=== PATIENT | female | born 1950 | race Caucasian/White ===

== ENCOUNTER 2017-08-15 06:39 | Day surgery (SDC) | payer MEDICARE ==
[2017-08-08 11:57] VITALS: BMI 32.1
[~2017-08-15 06:39] MED LIST: DEXAMETHASONE SOD PHOSPHATE 10 MG/ML 1 ML VIAL IV ONE; HEPARIN SODIUM,PORCINE 5,000 UNIT/ML 1 ML VIAL SQ ONE; LACTATED RINGERS 1,000 ML IV SCH; MIDAZOLAM 2 MG/2 ML VIAL IV PRN; MORPHINE SULFATE 4 MG/ML SYRINGE IV PRN; ONDANSETRON 4 MG/2 ML VIAL IVP ONE; Pre Op ABX Message 1 EACH MISC MISCELLANE ONE
[2017-08-15 07:17] VITALS: TEMP 97.6
[2017-08-15] MEDS ORDERED: ALPRAZolam 0.25 MG TAB PO STA (07:17)
[2017-08-15] MEDS ORDERED: LIDOCAINE 1% 20 ML VIAL (10MG/ML) FOR IV START INTRADERMA ONE (07:18)
--- NOTE | 2017-08-15 08:25 | NM ---
EXAMINATION TYPE: NM sentinel node injection DATE OF EXAM: 08/15/2017 COMPARISON: NONE HISTORY: Left-sided breast cancer TECHNIQUE AND FINDINGS: The procedure of sentinel lymph node injection was explained to the patient. The benefits, alternatives, and risks were discussed. An informed consent was then obtained. Overlying skin is cleaned with sterile alcohol. Lidocaine buffered with bicarbonate was used as anes thetic into the skin and subcutaneous tissue surrounding the nipple. Following this, 541 uCi Tc 99m Filtered Sulfur Colloid was injected into 4 equivalent doses at 12, 3, 6, and 9:00 position surroundi ng the left nipple intradermally. The injection sites were massaged by nuclear reactor engineer for 10 minutes after injection. T he patient tolerated the procedure well without any immediate complication. The patient was kept in the radiology department for short stay after the procedure and then taken to surgery for surgical pr ocedure what is presumed intraoperative gamma probe will be used for sentinel lymph node detection. IMPRESSION: Left breast radiotracer injection for sentinel node localization as above.
[2017-08-15] MEDS ORDERED: HEPARIN SODIUM,PORCINE 5,000 UNIT/ML 1 ML VIAL SQ ONE (09:58)
--- NOTE | 2017-08-15 10:01 | P.PN ---
Progress Note - Text Patient's pathology slides were reviewed with pathologist at [facility]. Patient does not wish to have them re-reviewed at [facility]. Therefore, we will proceed with surgical resection based on review of the pathology slides at [facility].
[2017-08-15] MEDS ORDERED: diphenhydrAMINE 50 MG/ML 1 ML VIAL ONE (10:27)
[2017-08-15] MEDS ORDERED: PHENYLEPHRINE-0.9% NACL SYG 1 MG/10 ML SYRINGE ONE (10:27)
[2017-08-15] MEDS ORDERED: fentaNYL (PF) 50 MCG/ML 2 ML AMP ONE (10:27)
[2017-08-15] MEDS ORDERED: PROPOFOL 10 MG/ML 20 ML VIAL IV ONE (10:27)
[2017-08-15] MEDS ORDERED: LIDOCAINE 1% INJ 10MG/ML (20 ML MDV) ONE (10:27)
[2017-08-15] MEDS ORDERED: MIDAZOLAM 2 MG/2 ML VIAL ONE (10:27)
[2017-08-15] MEDS ORDERED: KETOROLAC 30 MG/ML 1 ML VIAL ONE (10:27)
[2017-08-15] MEDS ORDERED: MORPHINE SULFATE 10 MG/ML SYRINGE ONE (10:27)
[2017-08-15] MEDS ORDERED: SUCCINYLCHOLINE CHLORIDE 100 MG/5 ML SYR IV ONE (10:27)
[2017-08-15] MEDS ORDERED: SODIUM CHLORIDE 0.9% 50 ML with ceFAZolin 2,000 MG IV ONE ×2 (10:37)
[2017-08-15] MEDS ORDERED: METHYLENE BLUE 10 MG/ML (10 ML VIAL) INJ ONE (10:37)
[2017-08-15] MEDS ORDERED: LACTATED RINGERS 1,000 ML IV ONE ×2 (11:38)
--- NOTE | 2017-08-15 12:46 | P.OP ---
Date of Procedure: 08/15/17 Preoperative Diagnosis: Left breast cancer Postoperative Diagnosis: Left breast cancer Procedure(s) Performed: Methylene blue injection for lymphatic mapping, sentinel node biopsy, lumpectomy with titanium clip placement Anesthesia: LUIS MIGUEL Surgeon: Carey Dowling Estimated Blood Loss (ml): 20 IV fluids (ml): 1,100 Pathology: other (Left sentinel nodes, lumpectomy specimen) Condition: stable Disposition: PACU Indications for Procedure: Left breast cancer Operative Findings: Left breast cancer Description of Procedure: Patient was taken to the operating room and following induction of general anesthesia the periareolar area was prepped using alcohol on the left breast. 5 mL of half percent methylene blue was injected in the periareolar area and the breast was massaged. The left breast and axilla were then prepped and draped in a sterile fashion. Using the neoprobe the area of greatest radioactivity was identified in the left axilla. An incision was made at this site. The incision was then expanded in order to get better access to the axilla. The skin and subcutaneous tissues were entered and dissection was performed down to the pectoralis minor muscle which was then carried up superiorly towards the axillary vein. At this point several sentinel nodes were identified. These are very small and removed and the following order. [place] lymph node #1 10 second count 691; number 2, 10 second count 207 sentinel lymph node #3, 10 second count 141 seconds node number 4, 10 second count 401 and sentinel nodes 5 and 6 were together and sentinel node count of this was 12,325. The background count in the axilla was 10 second count of 14. No blue dye was noted in the axilla or in any of the sentinel nodes. No other suspicious adenopathy was identified. To facilitate dissection fatty tissue over the area of the sentinel nodes was removed as well. After we were assured that hemostasis was attained the wound was packed. The area of the breast was then approached. The tumor was in the retroareolar area. Circumferential incision around the areola was performed. This was dissected down to the area of the chest wall being careful to remove the tumor. The anterior border of dissection was the nipple and periareolar tissue, and the posterior border was the pectoralis major muscle. After we were assured that hemostasis was attained the wound was well irrigated. The deep tissues were closed using 3-0 Vicryl suture. Titanium clips were placed for orientation of the cavity. The subcutaneous tissues were closed with 3-0 Vicryl suture. The skin was closed with 4-0 Monocryl. The pathology returned from the sentinel node biopsies and all sentinel nodes were negative for cancer. A MARTIN drain was placed. The wound was well irrigated no evidence of bleeding was identified. The deep tissues were closed with 3-0 Vicryl followed by closure of the skin with 4-0 Monocryl. All instrument and sponge counts were correct at the end of the case. The specimen was painted for orientation at the end of the case.
--- NOTE | 2017-08-15 12:48 | P.DS ---
Providers Attending physician: Carey Dowling Primary care physician: Demarco Ridley Plan - Discharge Summary New Discharge Prescriptions: No Action No Known Home Medications [No Known Home Medications] Discharge Medication List No Known Home Medications [No Known Home Medications] 08/05/15 [History] Follow up Appointment(s)/Referral(s): Carey Dowling MD [STAFF PHYSICIAN] - 3 Days Activity/Diet/Wound Care/Special Instructions: Do not drive until seen by Dr. Lott Do not drive if taking narcotic pain medication Teach patient drain care, drain and record BID Discharge Disposition: HOME SELF-CARE
[2017-08-15 14:27] VITALS: RESP 18
[2017-08-15] MEDS ORDERED: HYDROcodone/APAP 5-325MG 1 EACH TAB PO ONE (15:18)
[2017-08-15 15:41] VITALS: BP 117/71; PULSE 87
== END 2017-08-15 15:55 | disposition home or self-care (01) ==
LOC: OR 06:39
PROVIDERS: ATTEND Surgery
DX: C50.912 Malignant neoplasm of unspecified site of left female breast (principal); D05.12 Intraductal carcinoma in situ of left breast; N60.32 Fibrosclerosis of left breast; N60.02 Solitary cyst of left breast; N60.82 Other benign mammary dysplasias of left breast; N60.42 Mammary duct ectasia of left breast; N60.22 Fibroadenosis of left breast; Z88.5 Allergy status to narcotic agent; M54.30 Sciatica, unspecified side; N60.92 Unspecified benign mammary dysplasia of left breast
CPT/HCPCS: 88342; 88331; 88307; 88341; 38792; 19301; 38525; A9541; J2250; J1200; J1644; J1100; J2270; J2405; J2001; Q9968; J3010; J1885; J0690; J2370; J0330; J2704

== ENCOUNTER → 2017-12-07 | Outpatient (CLI) | payer MEDICARE ==
[2017-12-07 11:48] VITALS: BP 146/84; PULSE 94; TEMP 98.8; BMI 32.8
--- NOTE | 2017-12-07 12:02 | P.PN ---
Subjective Progress Note Date: 12/07/17 Patient is a 67-year-old white female status post left lumpectomy and radiation therapy in July 2017. At this time the patient is doing well without complaints. She has finished her course of radiation therapy and is recently started on anti-estrogen anastrozole. The patient has no complaints Objective - Vital Signs Vital signs: Vital Signs Temp 98.8 F 12/07/17 11:45 Pulse 94 12/07/17 11:45 Resp BP 146/84 12/07/17 11:45 Pulse Ox 97 12/07/17 11:45 Intake & Output 12/06/17 12/07/17 12/07/17 18:59 06:59 18:59 Weight 95.254 kg - Constitutional General appearance: Present: obese - EENT Eyes: Present: EOMI - Neck Neck: Present: normal ROM - Respiratory Respiratory: bilateral: CTA - Cardiovascular Rhythm: regular Heart sounds: normal: S1, S2 - Gastrointestinal General gastrointestinal: Present: normal bowel sounds, soft - Musculoskeletal Musculoskeletal: Present: gait normal - Psychiatric Psychiatric: Present: A&O x's 3, appropriate affect - Additional findings Additional findings: Breast examination: Right breast: No dominant masses or nodules of concern were multiple positional exam Left breast: Postoperative changes no dominant masses or nodules of concern, the patient oncology changes Bilateral axilla: No adenopathy of concern Assessment and Plan Assessment: Impression/plan: 1. Patient status post left breast lumpectomy doing well with no evidence of recurrent disease 2. She is followed with a lymphedema specialist no evidence of lymphedema or symptomatic at this time 3. Patient on an antiestrogen medication Plan: Repeat left breast mammogram at 6 months which will be approximately February and follow-up examination at that time
== END ==
LOC: WWCWWP 11:25
PROVIDERS: ATTEND Surgery
DX: R92.8 Other abnormal and inconclusive findings on diagnostic imaging of breast (principal); Z53.9 Procedure and treatment not carried out, unspecified reason

== ENCOUNTER → 2018-04-19 | Outpatient (CLI) | payer MEDICARE ==
[2018-04-19 12:59] VITALS: BP 142/84; PULSE 77; RESP 16; TEMP 98; BMI 30.5
--- NOTE | 2018-04-19 13:21 | P.PN ---
Subjective Progress Note Date: 04/19/18 The patient is a 60-year-old white female who is status post a left breast lumpectomy in July 2017. The patient had a 1.7 cm ER/[place] positive HER-2/precious negative breast cancer removed via lumpectomy. She had an Oncotype study performed on the lesion which was low risk at 15 and therefore did not have chemotherapy. She did undergo radiation therapy. And she is on anastrozole and Fosamax. Tumor was grade 2. She had nine lymph nodes removed, all negative.T1N0Mo, a low Oncotype score at 15. She had a lumpectomy and radiation therapy and is on hormonal therapy. She has no lumps or masses in her breast. No new changes for which she is concerned. A recent mammogram was performed yesterday and she was told that this was negative for any thing of concern. Mammogram was bilateral. We will obtain those reports. Objective - Vital Signs Vital signs: Vital Signs Temp 98.0 F 04/19/18 12:52 Pulse 77 04/19/18 12:52 Resp 16 04/19/18 12:52 BP 142/84 04/19/18 12:52 Pulse Ox 97 04/19/18 12:52 Intake & Output 04/18/18 04/19/18 04/19/18 18:59 06:59 18:59 Weight 88.451 kg BMI 30.5 - Constitutional General appearance: Present: obese - EENT Eyes: Present: EOMI ENT: Present: hearing grossly normal - Neck Neck: Present: normal ROM - Respiratory Respiratory: bilateral: CTA - Cardiovascular Rhythm: regular Heart sounds: normal: S1, S2 - Gastrointestinal Gastrointestinal Comment(s): well healed scars General gastrointestinal: Present: soft - Integumentary Integumentary: Present: normal - Psychiatric Psychiatric: Present: A&O x's 3, appropriate affect, intact judgment & insight Assessment and Plan Assessment: Impression: 1. status post left breast lumpectomy and radiation therapy [id number], Grade 2 Plan: 1. follow up in 6 months cc: Khai
== END ==
LOC: WWCWWP 12:12
PROVIDERS: ATTEND Surgery
DX: Z53.9 Procedure and treatment not carried out, unspecified reason (principal)

== ENCOUNTER → 2018-11-22 | Outpatient (CLI) | payer MEDICARE ==
[2018-11-22 13:35] VITALS: BP 133/85; PULSE 94; RESP 16; TEMP 98.6; BMI 30.2
--- NOTE | 2018-11-22 14:19 | P.GSHP ---
History of Present Illness H&P Date: 11/22/18 Chief Complaint: Left breast lumpectomy July 2017 Yee is a 68-year-old white female who is status post left breast lumpectomy in July 2017. The patient had a T1C 1.7 cm ER, [place] Positive HER-2/precious negative/borderline equivocal Grade 3 breast cancer removed via lumpectomy, Grade 2. She had an oncotype study performed which was low risk of 15 and did not have chemotherapy. She did undergo radiation therapy. She was then treated with anastrozole and Fosamax. She had some initial ? bony pain and stopped the anastrazole for a short time, she is back on it at this time. She is not having any complaints related to her breast. The patient's last bilateral mammogram was . This was considered to be incomplete and a left breast ultrasound was ordered. Nothing of concern was noted in the right breast. Family history: Brother: Bladder cancer Hormonal history: Menarche: 13 :2, 2 children, age at first 19, breast fed: yes Menopause: 48 control pills: 5 year Hormones: none Past Surgical History: 1. gallbladder 2. appy 3. lumpectomy Past Medical History: 1. negative Smoke: smoke: none alcohol: none drugs: none Review of systems: HEENT: Wears glasses Constitutional: Difficulty with sleeping, related to Anestrazole Lungs: none heart: none GI: constipation : none Musculoskeletal: Sore joints but seemed to be improving Integument:none Psychiatric: none - Constitutional Constitutional: Reports sweats, Denies chills, Denies fever - EENT Eyes: denies blurred vision, denies pain Ears: deny: decreased hearing, tinnitus Ears, nose, mouth and throat: Denies headache, Denies sore throat - Breasts Breasts: bilateral: as per HPI - Cardiovascular Cardiovascular: Denies chest pain, Denies shortness of breath - Respiratory Respiratory: Reports cough - Gastrointestinal Comment: constipation - Genitourinary (Female) Genitourinary: Denies dysuria, Denies hematuria - Menstruation Menstruation: Reports postmenopausal - Musculoskeletal Comment: joint pain resolved - Integumentary Integumentary: Denies pruritus, Denies rash - Neurological Neurological: Denies numbness, Denies weakness - Psychiatric Psychiatric: Denies anxiety, Denies depression - Endocrine Endocrine: Reports fatigue, Denies weight change - Hematologic/Lymphatic Comment: none - Allergic/Immunologic Allergic/Immunologic: Reports as per HPI Past Medical History Past Medical History: Cancer Additional Past Medical History / Comment(s): L Breast CA History of Any Multi-Drug Resistant Organisms: None Reported Past Surgical History: Appendectomy, Breast Surgery, Cholecystectomy Additional Past Surgical History / Comment(s): U/S CORE BX 08/01/17. lumpectomy and snb 08/15/17 Past Anesthesia/Blood Transfusion Reactions: No Reported Reaction Past Psychological History: No Psychological Hx Reported Smoking Status: Never smoker Past Alcohol Use History: None Reported Past Drug Use History: None Reported - Past Family History Mother Family Medical History: No Reported History Brother(s) Family Medical History: Cancer Additional Family Medical History / Comment(s): HEART DISEASE; BLADDER CANCER Father Family Medical History: Renal Disease Additional Family Medical History / Comment(s): HEART DISEASE Medications and Allergies Home Medications Medication Instructions Recorded Confirmed Type Alendronate Sodium 70 mg PO WEEKLY 12/07/17 11/22/18 History Anastrozole [Arimidex] 1 mg PO QAM 12/07/17 11/22/18 History Allergies Allergy/AdvReac Type Severity Reaction Status Date / Time codeine AdvReac dizziness,l Verified 11/22/18 13:36 ightheaded Surgical - Exam Vital Signs Temp Pulse Resp BP Pulse Ox 98.6 F 94 16 133/85 95 11/22/18 13:28 11/22/18 13:28 11/22/18 13:28 11/22/18 13:28 11/22/18 13:28 BMI 30.2 - General well developed, well nourished, no distress - Eyes normal ocular movement - ENT no hearing loss - Neck no masses, trachea midline - Respiratory normal respiratory effort, clear to auscultation - Cardiovascular Rhythm: regular Heart Sounds: normal: S1, S2 - Abdomen Abdomen: soft, non tender, no guarding, no rigid, no rebound - Integumentary normal turgor - Neurologic no disoriented, no combative - Musculoskeletal normal gait, normal posture - Psychiatric oriented to time, oriented to person, oriented to place, speech is normal, memory intact breast exam: right breast: Multi-positional exam no dominant masses or nodules of concern, fibrocystic changes Right axilla: No adenopathy of concern Left breast: Multi-positional exam no dominant masses or nodules of concern, patient has had a lumpectomy which is a central lumpectomy Left axilla: No adenopathy of concern Results mammogram results from may 2018 reviewed Assessment and Plan Assessment: Impression: 1. Stage IA left breast cancer 2. Fibrocystic breast changes 3. joint pain improving on anestrazole 4. no evidence of recurrent disease Plan: 1. Repeat examination here in 3 months time 2. Continue to follow with Dr. Dr. Farnsworth radiation oncology 3. Follow-up with Dr. Farnsworth medical oncology CC: DR. Georgie Ridley
== END ==
LOC: WWCWWP 13:10
PROVIDERS: ATTEND Surgery
DX: Z53.9 Procedure and treatment not carried out, unspecified reason (principal)

== ENCOUNTER → 2019-08-07 | Outpatient (CLI) | payer MEDICARE, OTHER ==
[2019-08-07 13:02] VITALS: BP 162/82; PULSE 86; RESP 18; TEMP 98.5
--- NOTE | 2019-08-07 13:40 | P.PN ---
Subjective Progress Note Date: 08/07/19 Principal diagnosis: Surveillance stage I left breast cancer treated in July 2017 Yee is a 68-year-old white female who is status post left breast lumpectomy in July 2017. The patient had a T1C 1.7 cm ER, [place] Positive HER-2/percious negative/borderline equivocal Grade 2 breast cancer removed via lumpectomy. She had an oncotype study performed which was low risk of 15 and did not have chemotherapy. She did undergo radiation therapy. She was then treated with anastrozole and Fosamax. She had some initial ? bony pain and stopped the anastrazole for a short time, she is back on it at this time. She is not having any complaints related to her breast. The patient's last bilateral mammogram was 06-26-19. This was bilateral. It was benign BIRADS 2. Follow-up bilateral mammogram in 1 year recommended. Patient does not have any complaints of any changes in her breast. She does not complain of any skin changes. No nipple discharge. No lumps or masses in her breast of concern. She is not complaining of any breast pain. Family history: Brother: Bladder cancer patient: breast cancer Hormonal history: Menarche: 13 :2, 2 children, age at first 19, breast fed: yes Menopause: 48 control pills: 5 year Hormones: none Past Surgical History: 1. gallbladder 2. appy 3. lumpectomy 4. left breast lumpectomy and SNB Past Medical History: 1. ankle pain, right side/ MRI showed swelling which has improved Smoke: smoke: none alcohol: none drugs: none Review of systems: HEENT: Wears glasses Constitutional: Difficulty with sleeping, related to Anestrazole Lungs: none heart: none GI: constipation : none Musculoskeletal: Sore joints but seemed to be improving/ right ankle pain improved Integument:none Psychiatric: none - Constitutional Constitutional: Reports sweats, Denies chills, Denies fever - EENT Eyes: denies blurred vision, denies pain, wears glasses Ears: deny: decreased hearing, tinnitus Ears, nose, mouth and throat: Denies headache, Denies sore throat, mild headaches on anestrazole - Breasts Breasts: bilateral: as per HPI - Cardiovascular Cardiovascular: Denies chest pain, Denies shortness of breath, HTN, high cholesterol - Respiratory Respiratory: Reports cough in AM not persistent - Gastrointestinal Comment: a colonscopy done in November 2017, no problems - Genitourinary (Female) Genitourinary: Denies dysuria, Denies hematuria - Menstruation Menstruation: Reports postmenopausal - Musculoskeletal Comment: joint pain resolved - Integumentary Integumentary: Denies pruritus, Denies rash - Neurological Neurological: Denies numbness, Denies weakness, tingling in toes - Psychiatric Psychiatric: Denies anxiety, Denies depression - Endocrine Endocrine: Reports fatigue, Denies weight change - Hematologic/Lymphatic Comment: none - Allergic/Immunologic Allergic/Immunologic: Reports as per HPI Past Medical History Past Medical History: Cancer Additional Past Medical History / Comment(s): L Breast CA History of Any Multi-Drug Resistant Organisms: None Reported Past Surgical History: Appendectomy, Breast Surgery, Cholecystectomy Additional Past Surgical History / Comment(s): U/S CORE BX 08/01/17. lumpectomy and snb 08/15/17 Past Anesthesia/Blood Transfusion Reactions: No Reported Reaction Past Psychological History: No Psychological Hx Reported Smoking Status: Never smoker Past Alcohol Use History: None Reported Past Drug Use History: None Reported - Past Family History Mother Family Medical History: No Reported History Brother(s) Family Medical History: Cancer Additional Family Medical History / Comment(s): HEART DISEASE; BLADDER CANCER Father Family Medical History: Renal Disease Additional Family Medical History / Comm Objective - Vital Signs Vital signs: Vital Signs Temp 98.5 F 08/07/19 12:57 Pulse 86 08/07/19 12:57 Resp 18 08/07/19 12:57 BP 162/82 08/07/19 12:57 Pulse Ox 97 08/07/19 12:57 Intake & Output 08/06/19 08/07/19 08/07/19 18:59 06:59 18:59 Weight 89.358 kg - Exam BMI 30.9 - Constitutional General appearance: Present: average body habitus - EENT Eyes: Present: EOMI ENT: Present: hard of hearing, hearing grossly normal - Neck Details: no adenopathy of concern Neck: Present: normal ROM - Respiratory Respiratory: bilateral: CTA - Cardiovascular Rhythm: regular Heart sounds: normal: S1, S2 - Gastrointestinal General gastrointestinal: Present: normal bowel sounds, soft - Integumentary Integumentary: Present: normal turgor - Musculoskeletal Musculoskeletal: Present: gait normal - Psychiatric Psychiatric: Present: A&O x's 3, appropriate affect, intact judgment & insight - Additional findings Additional findings: breast exam: BRA 40DD Inspection: No evidence of recurrence on the skin, right nipple is not inverted, left nipple areolar complex removed at time of lumpectomy Palpation: Right breast: Multi-positional exam fibrocystic changes, no dominant masses or nodules of concern Right axilla: No adenopathy of concern Left breast: Patient status post lumpectomy, nipple areolar complex removed, multiple positional exam no dominant masses or nodules of concern, no evidence of recurrence Left axilla: No adenopathy of concern Assessment and Plan Assessment: Impression: 1. Patient status post left lumpectomy and sentinel node biopsy July 2017 for stage I breast cancer/patient received radiation therapy therapy her Oncotype score was low she is presently on anastrozole 2. Questionable side effects from anastrozole including decreased ability to sleep, night sweats, and joint pain 3. Hypertension 4. High cholesterol Plan: 1. Patient is interested in trying to determine the possible benefit of the anastrozole and will discuss this with Dr. Farnsworth, she may opt to stop the anastrozole if a benefit as well 2. Recent normal mammogram repeat bilateral mammogram in 1 year with physician exam at that time 3. Six-month follow-up breast examination CC: Dr. Ridley encounter 20 minutes, > 50% spent in planning and counselling Time with Patient: Less than 30
== END ==
LOC: WWCWWP 10:26
PROVIDERS: ATTEND Surgery
DX: Z53.9 Procedure and treatment not carried out, unspecified reason (principal)

== ENCOUNTER → 2020-07-03 | Outpatient (CLI) | payer MEDICARE ==
--- NOTE | 2020-07-03 11:11 | P.PN ---
Subjective Progress Note Date: 07/03/20 Principal diagnosis: stage 1 left breast cancer stage 1 left breast cancer Surveillance stage I left breast cancer treated in July 2017 Yee is a 68-year-old white female who is status post left breast lumpectomy in July 2017. The patient had a T1C 1.7 cm ER, [place] Positive HER-2/precious negative/borderline equivocal Grade 2 breast cancer removed via lumpectomy. She had an oncotype study performed which was low risk of 15 and did not have chemotherapy. She did undergo radiation therapy. She was then treated with anastrozole and Fosamax. She had some initial ? bony pain and stopped the anastrazole for a short time this was restarted in December. She was doing better as far as joint pain this time. After she'll be started to anastrozole the bony symptoms recurred as well as difficulty with sleeping. Therefore approximately 6 months ago she stopped it again and is not planning to go back on it. She is not having any complaints related to her breast. The patient's last bilateral mammogram was 07-02-20. This was bilateral. It was benign BIRADS 2. Follow- up bilateral mammogram in 1 year recommended. Patient does not have any complaints of any changes in her breast. She does not complain of any skin changes. No nipple discharge. No lumps or masses in her breast of concern. She is not complaining of any breast pain. Family history: Brother: Bladder cancer patient: breast cancer Hormonal history: Menarche: 13 :2, 2 children, age at first 19, breast fed: yes Menopause: 48 control pills: 5 year Hormones: none Past Surgical History: 1. gallbladder 2. appy 3. lumpectomy 4. left breast lumpectomy and SNB Past Medical History: 1. ankle pain, right side/ MRI showed swelling which has improved 2. [place] upper extremities Social History: smoke: none alcohol: none drugs: none Review of systems: HEENT: Wears glasses Constitutional: Difficulty with sleeping, related to Anestrazole Lungs: none heart: none GI: constipation : none Musculoskeletal: Sore joints but seemed to be improving/ right ankle pain improved Integument:none Psychiatric: none Objective - Vital Signs Vital signs: Vital Signs Temp 97.5 F L 07/03/20 10:46 Pulse 93 07/03/20 10:46 Resp 18 07/03/20 10:46 BP 138/88 07/03/20 10:46 Pulse Ox 97 07/03/20 10:46 Intake & Output 07/02/20 07/03/20 07/03/20 18:59 06:59 18:59 Weight 90.718 kg - Exam BM 31.3 - Constitutional General appearance: Present: average body habitus - EENT Eyes: Present: EOMI ENT: Present: hearing grossly normal - Neck Neck: Present: normal ROM - Respiratory Respiratory: bilateral: CTA - Cardiovascular Rhythm: regular Heart sounds: normal: S1, S2 - Gastrointestinal General gastrointestinal: Present: normal bowel sounds, soft - Integumentary Integumentary: Present: normal turgor - Musculoskeletal Musculoskeletal: Present: gait normal - Psychiatric Psychiatric: Present: A&O x's 3, appropriate affect - Additional findings Additional findings: breast exam: BRA: 40DD inspection: left breast partial mastectomy palpation: right breast: Multi positional exam no dominant masses or nodules of concern Right axilla: No adenopathy of concern Left breast: Partial mastectomy, no dominant masses or nodules of concern on multi-positional exam Left axilla: No adenopathy of concern Assessment and Plan Assessment: Impression: 1. stage 1 left breast cancer no evidence of recurrence 2. Fibrocystic breast changes 3. Patient has stopped anastrozole and is feeling better as far as discomfort, sleeping better at night 4. [place] resolved Plan: 1. Repeat bilateral mammogram in 1 year 2. Follow-up appointment in 6 months for surveillance 3. Call sooner if any questions or concerns Cc: Dr. Georgie Ridley encounter 15 minutes, > %0% of time in planning and counselling
== END | disposition home or self-care (01) ==
DX: Z53.9 Procedure and treatment not carried out, unspecified reason (principal)

== ENCOUNTER → 2020-07-07 | Outpatient (CLI) | payer MEDICARE ==
--- NOTE | 2020-07-07 11:18 | CT ---
EXAMINATION TYPE: CT abdomen pelvis wo con DATE OF EXAM: 07/07/2020 COMPARISON: None HISTORY: RUQ pain with constipation CT DLP: 650.2 mGycm Examination of the solid and hollow viscera is limited given the lack of contrast. FINDINGS: LUNG BASES: No evidence for nodule. No evidence for infiltrate. LIVER/GB: The gallbladder is unremarkable. No space-occupying hepatic lesion. PANCREAS: No pancreatic mass identified. No inflammatory process seen. SPLEEN: No evidence for splenomegaly. No intrasplenic lesions seen. ADRENALS: No adrenal nodules identified. No evidence for thickening. KIDNEYS: There are multiple hypoattenuating lesions in the region of the renal pelvis felt to reflect parapelvic cysts left kidney. There may be a degree of the mild hydronephrosis however evaluation is limited given the lack of contrast. No evidence for right-sided hydronephrosis. A few small parapelv ic cysts are noted lower pole right kidney. BOWEL: Appendix has a normal appearance. No evidence of bowel obstruction. No inflammatory process. Diverticulosis without diverticulitis. Lymph nodes: No evidence for adenopathy greater than 1 cm. Abdominal aorta: Atheromatous changes seen. No evidence for aneurysm. Genital organs: No significant abnormality. Other: No significant abnormality. IMPRESSION: 1.There are multiple hypoattenuating lesions in the region of the renal pelvis felt to reflect parape lvic cysts left kidney. There may be a degree of the mild hydronephrosis however evaluation is limite d given the lack of contrast.
== END | disposition home or self-care (01) ==
LOC: RADCTMAIN 10:31
PROVIDERS: ATTEND Family Medicine
DX: N28.9 Disorder of kidney and ureter, unspecified (principal)
CPT/HCPCS: 74176

== ENCOUNTER → 2021-12-09 | Outpatient (CLI) | payer MEDICARE ==
[2021-12-09 09:52] VITALS: BP 129/85; PULSE 79; RESP 16; TEMP 98.7
--- NOTE | 2021-12-09 10:31 | P.PN ---
Subjective Progress Note Date: 12/09/21 Principal diagnosis: stage IA left breast invasive ductal cancer Yee is a 68-year-old white female who is status post left breast lumpectomy in July 2017. The patient had a T1C 1.7 cm ER, [place] Positive HER-2/precious negative/borderline equivocal Grade 3 breast cancer removed via lumpectomy, Grade 2. She had an oncotype study performed which was low risk of 15 and did not have chemotherapy. She did undergo radiation therapy. She was then treated with anastrozole and Fosamax. She had some initial ? bony pain and stopped the anastrazole for a short time, she is back on it at this time. She is not having any complaints related to her breast. The patient's last bilateral mammogram was . This was considered to be incomplete and a left breast ultrasound was ordered. Nothing of concern was noted in the right breast. She had a bilateral mammogram on 12-01-21 which was benign BIRAD 2. Stop the anastrozole approximately year and a half ago, also stop the Fosamax. She is following with radiation oncology at [facility], Dr. Ng. She is not following with any radiation oncologist. She has not been seen since [facility], in 2019. She had the vaccine and one booster. It was the Moderna. Her boost was in May of 2021. Family history: Brother: Bladder cancer Hormonal history: Menarche: 13 :2, 2 children, age at first 19, breast fed: yes Menopause: 48 control pills: 5 year Hormones: none Past Surgical History: 1. gallbladder 2. appy 3. lumpectomy Past Medical History: 1. negative Smoke: smoke: none alcohol: none drugs: none Review of systems: HEENT: Wears glasses Constitutional: Difficulty with sleeping, related to Anestrazole Lungs: none heart: none GI: constipation : none Musculoskeletal: Sore joints but seemed to be improving Integument:none Psychiatric: none - Constitutional Constitutional: Reports sweats, Denies chills, Denies fever - EENT Eyes: denies blurred vision, denies pain Ears: deny: decreased hearing, tinnitus Ears, nose, mouth and throat: Denies headache, Denies sore throat - Breasts Breasts: bilateral: as per HPI - Cardiovascular Cardiovascular: Denies chest pain, Denies shortness of breath - Respiratory Respiratory: Reports cough - Gastrointestinal Comment: constipation - Genitourinary (Female) Genitourinary: Denies dysuria, Denies hematuria - Menstruation Menstruation: Reports postmenopausal - Musculoskeletal Comment: joint pain resolved - Integumentary Integumentary: Denies pruritus, Denies rash - Neurological Neurological: Denies numbness, Denies weakness - Psychiatric Psychiatric: Denies anxiety, Denies depression - Endocrine Endocrine: Reports fatigue, Denies weight change - Hematologic/Lymphatic Comment: none - Allergic/Immunologic Allergic/Immunologic: Reports as per HPI Objective - Vital Signs Vital signs: Vital Signs Temp 98.7 F 12/09/21 09:47 Pulse 79 12/09/21 09:47 Resp 16 12/09/21 09:47 BP 129/85 12/09/21 09:47 Pulse Ox 98 12/09/21 09:47 FiO2 Intake & Output 12/08/21 12/09/21 12/09/21 18:59 06:59 18:59 Weight 88.451 kg - Exam BMI: 30.5 - Constitutional General appearance: Present: cooperative - EENT Eyes: Present: EOMI ENT: Present: hearing grossly normal - Neck Neck: Present: normal ROM - Respiratory Respiratory: bilateral: CTA - Cardiovascular Rhythm: regular Heart sounds: normal: S1, S2 - Gastrointestinal General gastrointestinal: Present: soft - Integumentary Integumentary: Present: normal turgor - Musculoskeletal Musculoskeletal: Present: gait normal - Psychiatric Psychiatric: Present: A&O x's 3, appropriate affect, intact judgment & insight - Additional findings Additional findings: Breast Exam: BRA: 40D inspection: post op changes left breast; fungal infection under the breast greater on the right than the left palpation: right breast: Multi-positional exam fibrocystic changes no dominant masses or nodules of concern Right axilla: No adenopathy of concern Left breast: Postoperative changes patient had a central lumpectomy with a resection of the nipple areolar complex, there is no evidence of any recurrent cancer Left axilla: No adenopathy of concern Assessment and Plan Assessment: Impression: No evidence of recurrent left breast cancer Patient has stopped the anastrozole and Fosamax She is no longer's following with medical oncology She continues to follow with radiation oncology Plan: Nystatin to apply under breast as needed for fungal infection Repeat bilateral mammogram in 1 year Follow up here 6 months Patient follow up sooner if any questions or concerns Cc: Dr. Ridley
== END ==
LOC: WWCWWP 09:39
PROVIDERS: ATTEND Surgery
DX: Z08 Encounter for follow-up examination after completed treatment for malignant neoplasm (principal); Z85.3 Personal history of malignant neoplasm of breast; Z88.5 Allergy status to narcotic agent

== ENCOUNTER → 2023-04-27 | Outpatient (CLI) | payer MEDICARE ==
[2023-04-27 09:52] VITALS: BP 128/81; PULSE 77; RESP 18; TEMP 97.9
--- NOTE | 2023-04-27 10:01 | P.PN ---
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 The patient had a T1C 1.7 cm ER, [place] Positive HER-2/precious negative/borderline equivocal Grade 3 breast cancer removed via lumpectomy, Grade 2. She had an oncotype study performed which was low risk of 15 and did not have chemotherapy. She did undergo radiation therapy. She was then treated with anastrozole and Fosamax, which she is off at this time. She had some initial ? bony pain and stopped the anastrazole. She is not having any complaints related to her breast. The patient's last bilateral mammogram was 03-08-23. This was BIRAD 2. She is following with radiation oncology at [facility], Dr. Ng. She is not following with any medical oncologist. Family history: Brother: Bladder cancer Hormonal history: Menarche: 13 :2, 2 children, age at first 19, breast fed: yes Menopause: 48 control pills: 5 year Hormones: none Past Surgical History: 1. gallbladder 2. appy 3. lumpectomy Past Medical History: 1. negative Smoke: smoke: none alcohol: none drugs: none Review of systems: HEENT: Wears glasses Constitutional: Difficulty with sleeping, related to Anestrazole Lungs: none heart: none GI: constipation : none Musculoskeletal: Sore joints but seemed to be improving Integument:none Psychiatric: none - Constitutional Constitutional: Reports sweats, Denies chills, Denies fever - EENT Eyes: denies blurred vision, denies pain Ears: deny: decreased hearing, tinnitus Ears, nose, mouth and throat: Denies headache, Denies sore throat - Breasts Breasts: bilateral: as per HPI - Cardiovascular Cardiovascular: Denies chest pain, Denies shortness of breath - Respiratory Respiratory: Reports cough - Gastrointestinal Comment: constipation - Genitourinary (Female) Genitourinary: Denies dysuria, Denies hematuria - Menstruation Menstruation: Reports postmenopausal - Musculoskeletal Comment: joint pain resolved - Integumentary Integumentary: Denies pruritus, Denies rash - Neurological Neurological: Denies numbness, Denies weakness - Psychiatric Psychiatric: Denies anxiety, Denies depression - Endocrine Endocrine: Reports fatigue, Denies weight change - Hematologic/Lymphatic Comment: none - Allergic/Immunologic Allergic/Immunologic: Reports as per HPI Objective - Vital Signs Vital signs: Vital Signs Temp 97.9 F 04/27/23 09:39 Pulse 77 04/27/23 09:39 Resp 18 04/27/23 09:39 BP 128/81 04/27/23 09:39 Pulse Ox 98 04/27/23 09:39 FiO2 Intake & Output 04/26/23 04/27/23 04/27/23 18:59 06:59 18:59 Weight 90.718 kg - Constitutional General appearance: Present: cooperative - EENT Eyes: Present: EOMI ENT: Present: hearing grossly normal - Neck Neck: Present: normal ROM - Respiratory Respiratory: bilateral: CTA - Cardiovascular Rhythm: regular Heart sounds: normal: S1, S2 - Integumentary Integumentary: Present: normal turgor - Musculoskeletal Musculoskeletal: Present: gait normal - Psychiatric Psychiatric: Present: A&O x's 3, appropriate affect, intact judgment & insight - Additional findings Additional findings: Breast Exam: BRA: 40D inspection: post op changes left breast; fungal infection under the right breast palpation: right breast: Multi-positional exam fibrocystic changes no dominant masses or nodules of concern Right axilla: No adenopathy of concern Left breast: Postoperative changes patient had a central lumpectomy with a resection of the nipple areolar complex, there is no evidence of any recurrent cancer Left axilla: No adenopathy of concern Assessment and Plan Assessment: Impression: No evidence of recurrent left breast cancer Patient has stopped the anastrozole and Fosamax She is no longer's following with medical oncology She continues to follow with radiation oncology; Dr. Ng Plan: Nystatin to apply under breast as needed for fungal infection Repeat bilateral mammogram in 1 year Follow up 1 year Patient follow up sooner if any questions or concerns Cc: Dr. Ridley
== END ==
LOC: WWCWWP 09:03
PROVIDERS: ATTEND Surgery
DX: Z85.3 Personal history of malignant neoplasm of breast (principal); Z79.811 Long term (current) use of aromatase inhibitors; Z88.5 Allergy status to narcotic agent

== ENCOUNTER → 2023-12-13 | Outpatient (CLI) | payer MEDICARE ==
[2023-12-13 14:42] LABS: Basophils # (A) 0.06 X 10*3/uL (0.00-0.10); Basophils % (A) 1.2 %; Eosinophils # (A) 0.09 X 10*3/uL (0.04-0.35); Eosinophils % (A) 1.8 %; HGB 13.3 g/dL (12.0-15.0); Lymphocytes % (A) 25.8 %; MCH 29.4 pg (27.0-32.0); MCHC 32.4 g/dL (32.0-37.0); MCV 90.7 FL (80.0-97.0); Mean Platelet Volume 10.7 FL (9.5-12.2); Monocytes # (A) 0.34 X 10*3/uL (0.20-1.00); Monocytes % (A) 6.8 %; NRBC Per 100 WBC 0 X 10*3/uL (0.00-0.01); Neutrophils # (A) 3.23 X 10*3/uL (1.80-7.70); Neutrophils % (A) 64.2 %; Platelet Count 230 X 10*3/uL (140-440); RBC 4.52 X 10*6/uL (4.10-5.20); RDW 12.3 % (11.5-14.5); WBC 5.03 X 10*3/uL (4.50-10.00)
[2023-12-13 15:03] LABS: Chol/HDL Ratio 3.56 Ratio; LDL Cholesterol,Calculated 112.4 mg/dL (0.0-131.0); Uric Acid 5.2 mg/dL (2.9-7.7)
[2023-12-13 15:18] LABS: ALT 9 U/L (8-44); AST 18 U/L (13-35); Albumin 4.4 g/dL (3.8-4.9); Alkaline Phosphatase 104 U/L (41-126); BUN/Creat Ratio 26.29 Ratio (12.00-20.00); Bilirubin, Conjugated <0.20 mg/dL (0.20-0.40); Bilirubin,Unconjugated >0.30 mg/dL (0.20-1.00); Blood Urea Nitrogen 18.4 mg/dL (9.0-27.0); Calcium 9.2 mg/dL (8.7-10.3); Carbon Dioxide 20.6 mmol/L (21.6-31.8); Chloride 106 mmol/L (96-109); Globulin 2.1 g/dL (1.6-3.3); Glucose 122 mg/dL (70-110); Potassium 4.6 mmol/L (3.5-5.5); Sodium 139 mmol/L (135-145); Total Bilirubin 0.5 mg/dL (0.3-1.2); Total Protein 6.5 g/dL (6.2-8.2)
[2023-12-13 15:49] LABS: Erythrocyte Sedimentation Rate 19 mm/Hr (0-30)
== END | disposition home or self-care (01) ==
LOC: LABWHC1 08:40
PROVIDERS: ATTEND Family Medicine
DX: M25.50 Pain in unspecified joint (principal); M79.674 Pain in right toe(s); E78.2 Mixed hyperlipidemia; R73.02 Impaired glucose tolerance (oral)
CPT/HCPCS: 36415; 80048; 80061; 80076; 83036; 84550; 85025; 85652; 86140

== ENCOUNTER → 2024-04-19 | Outpatient (CLI) | payer MEDICARE ==
[2024-04-19 10:11] VITALS: BP 143/83; PULSE 66; RESP 16; TEMP 97.8
--- NOTE | 2024-04-19 10:21 | P.PN ---
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 The patient had a T1C 1.7 cm ER, [place] Positive HER-2/precious negative/borderline equivocal Grade 3 breast cancer removed via lumpectomy, Grade 2. She had an oncotype study performed which was low risk of 15 and did not have chemotherapy. She did undergo radiation therapy. She was then treated with anastrozole and Fosamax, which she is off at this time. She had some initial ? bony pain and stopped the anastrazole. She is not having any complaints related to her breast. The patient's last bilateral mammogram was 03-13-24. This was BIRAD 2. She is following with radiation oncology at [facility], Dr. Ng. She is not following with any medical oncologist. She has had a 30 pound weight loss intentional. She is not complaining of any new masses or nodules in either breast. Since the weight loss she noted a bump on her right clavical and had a CT scan done on March 19 and told (-). Family history: Brother: Bladder cancer Hormonal history: Menarche: 13 :2, 2 children, age at first 19, breast fed: yes Menopause: 48 control pills: 5 year Hormones: none Past Surgical History: 1. gallbladder 2. appy 3. lumpectomy Past Medical History: 1. negative Smoke: smoke: none alcohol: none drugs: none Review of systems: HEENT: Wears glasses Constitutional: Difficulty with sleeping, related to Anestrazole Lungs: none heart: none GI: constipation : none Musculoskeletal: Sore joints but seemed to be improving Integument:none Psychiatric: none - Constitutional Constitutional: Reports sweats, Denies chills, Denies fever - EENT Eyes: denies blurred vision, denies pain Ears: deny: decreased hearing, tinnitus Ears, nose, mouth and throat: Denies headache, Denies sore throat - Breasts Breasts: bilateral: as per HPI - Cardiovascular Cardiovascular: Denies chest pain, Denies shortness of breath - Respiratory Respiratory: Reports cough - Gastrointestinal Comment: constipation - Genitourinary (Female) Genitourinary: Denies dysuria, Denies hematuria - Menstruation Menstruation: Reports postmenopausal - Musculoskeletal Comment: joint pain resolved - Integumentary Integumentary: Denies pruritus, Denies rash - Neurological Neurological: Denies numbness, Denies weakness - Psychiatric Psychiatric: Denies anxiety, Denies depression - Endocrine Endocrine: Reports fatigue, Denies weight change - Hematologic/Lymphatic Comment: none - Allergic/Immunologic Allergic/Immunologic: Reports as per HPI Objective - Vital Signs Vital signs: Intake & Output 04/18/24 04/19/24 04/19/24 18:59 06:59 18:59 Weight 79.379 kg - Constitutional General appearance: Present: cooperative - EENT Eyes: Present: EOMI ENT: Present: hearing grossly normal - Neck Neck: Present: normal ROM - Respiratory Respiratory: bilateral: CTA - Cardiovascular Rhythm: regular Heart sounds: normal: S1, S2 - Integumentary Integumentary: Present: normal turgor - Musculoskeletal Musculoskeletal: Present: gait normal - Psychiatric Psychiatric: Present: A&O x's 3, appropriate affect, intact judgment & insight - Additional findings Additional findings: Breast Exam: BRA: 40D inspection: post op changes left breast; fungal infection under both breast palpation: right breast: Multi-positional exam fibrocystic changes no dominant masses or nodules of concern Right axilla: No adenopathy of concern Left breast: Postoperative changes patient had a central lumpectomy with a resection of the nipple areolar complex, there is no evidence of any recurrent cancer Left axilla: No adenopathy of concern Assessment and Plan Assessment: Impression: No evidence of recurrent left breast cancer Patient has stopped the anastrozole and Fosamax She is no longer's following with medical oncology She continues to follow with radiation oncology; Dr. Ng Plan: Nystatin to apply under breast as needed for fungal infection Repeat bilateral mammogram in 1 year; February 2025 Follow up 1 year Patient follow up sooner if any questions or concerns Cc: Dr. Ridley
== END ==
LOC: WWCWWP 09:41
PROVIDERS: ATTEND Surgery
DX: Z85.3 Personal history of malignant neoplasm of breast